=== PATIENT | male | born 1985 | race Caucasian/White ===

== ENCOUNTER 2018-04-14 19:50 | Emergency (ER) | payer BC ==
[2018-04-14] MEDS ORDERED: HYDROCODONE/APAP 5/325 MG TAB ONE (20:35)
[2018-04-14] MEDS ORDERED: TETANUS & DIPHTHERIA TOX,ADULT 0.5 ML VIAL ONE (20:35)
[2018-04-14] MEDS ORDERED: LIDOCAINE 1% 20 ML MDV ONE ×2 (21:08→21:41)
--- NOTE | 2018-04-14 22:35 | ER ---
Nurse's Notes [facility] Name: Arley Bennett IV Age: 33 yrs Sex: Male : 1985 Arrival Date: 04/14/2018 Time: 19:51 Bed 19 Private MD: Diagnosis: Laceration without foreign body of right hand Presentation: 04/14 20:01 Presenting complaint: Patient states: Patient reports " I fell on an oyster bed and ea sliced my hand trying to catch myself". Transition of care: patient was not received from another setting of care. Onset of symptoms was April 14, 2018. Risk Assessment: Do you want to hurt yourself or someone else? Patient reports no desire to harm self or others. Initial Sepsis Screen: Does the patient meet any 2 criteria?. Initial Sepsis Screen: Does the patient meet any 2 criteria? No. Patient's initial sepsis screen is negative. Does the patient have a suspected source of infection? No. Patient's initial sepsis screen is negative. Care prior to arrival: None. 20:01 Method Of Arrival: Ambulatory ea 20:01 Acuity: ERLIN 3 ea Triage Assessment: 20:04 General: Appears uncomfortable, Behavior is calm, cooperative. Pain: Complains of pain ea in right hand. Musculoskeletal: Circulation, motion, and sensation intact. Injury Description: Laceration sustained to palmar aspect of proximal phalanx of right little finger, palmar aspect of middle phalanx of right ring finger, palmar aspect of proximal phalanx of right ring finger, palmar aspect of middle phalanx of right middle finger, palmar aspect of proximal phalanx of right middle finger, palmar aspect of proxima; phalanx of right index finger and Right first web space is 2.6 to 7.5 cm long, bleeding moderately, was sustained 30-60 minutes ago. Historical: - Allergies: 20:03 No Known Allergies; ea - Home Meds: 20:03 None [Active]; ea - PMHx: 20:03 None; ea - PSHx: 20:03 None; ea - Immunization history:: Adult Immunizations up to date. - Social history:: Smoking status: Patient/guardian denies using tobacco. - Ebola Screening: : No symptoms or risks identified at this time. Screenin:52 Abuse screen: Denies threats or abuse. Nutritional screening: No deficits noted. jd3 Tuberculosis screening: No symptoms or risk factors identified. Fall Risk Fall in past 12 months (25 points). Gait- Normal/Bed Rest/Wheelchair (0 pts) Mental Status- Oriented to own ability (0 pts). Total Casas Fall Scale indicates Low Risk Score (25-44 pts). Fall prevention measures have been instituted. Side Rails Up X 2 Placed close to Nursing Station Frequent Obs/Assesments occuring Family Present and informed to notify staff if they need to leave bedside. Assessment: 20:05 General: Appears in no apparent distress. uncomfortable, Behavior is calm, cooperative, jd3 appropriate for age. Pain: Complains of pain in palmar aspect of distal phalanx of right little finger, palmar aspect of proximal phalanx of right ring finger, palmar aspect of proximal phalanx of right middle finger and palmar aspect of middle phalanx of right index finger Quality of pain is described as aching, throbbing. Neuro: Level of Consciousness is awake, alert, obeys commands, Oriented to person, place, time, situation. Cardiovascular: Heart tones S1 S2 present Capillary refill < 3 seconds Patient's skin is warm and dry. Respiratory: Airway is patent Respiratory effort is even, unlabored, Respiratory pattern is regular, symmetrical, Breath sounds are clear bilaterally. GI: Abdomen is flat, Patient currently denies abdominal pain, diarrhea, nausea, vomiting. : No signs and/or symptoms were reported regarding the genitourinary system. EENT: No signs and/or symptoms were reported regarding the EENT system. Derm: Skin is intact, Skin is dry, Skin is normal, Skin temperature is warm Wound noted palmar aspect of middle phalanx of right little finger, palmar aspect of proximal phalanx of right ring finger, palmar aspect of proximal phalanx of right middle finger and palmar aspect of middle phalanx of right index finger. Musculoskeletal: Circulation, motion, and sensation intact. Range of motion: intact in all extremities. Injury Description: Laceration sustained to palmar aspect of middle phalanx of right little finger, palmar aspect of proximal phalanx of right ring finger, palmar aspect of proximal phalanx of right middle finger and palmar aspect of middle phalanx of right index finger is 0.5 to 2.5 cm long, bleeding moderately, was sustained 30-60 minutes ago. moderate bleeding noted at this time. 20:54 Reassessment: Patient appears in no apparent distress at this time. Patient and/or jd3 family updated on plan of care and expected duration. Pain level reassessed. Patient is alert, oriented x 3, equal unlabored respirations, skin warm/dry/pink. waiting for results and provider for laceration care. 21:48 Reassessment: Patient appears in no apparent distress at this time. Patient and/or jd3 family updated on plan of care and expected duration. Pain level reassessed. Patient is alert, oriented x 3, equal unlabored respirations, skin warm/dry/pink. provider at bedside. 22:58 Reassessment: Patient appears in no apparent distress at this time. Patient and/or jd3 family updated on plan of care and expected duration. Pain level reassessed. Patient is alert, oriented x 3, equal unlabored respirations, skin warm/dry/pink. pt reported understanding of discharge instructions, even and steady gait upon discharge. Patient states feeling better. Vital Signs: 20:03 Pulse 84; Resp 18 S; Temp 99; Pulse Ox 97% ; Weight 99.79 kg; Height 5 ft. 11 in. ea (180.34 cm); Pain 8/10; 20:53 BP 103 / 65; Pulse 70; Resp 18 S; Pulse Ox 99% on R/A; jd3 21:47 BP 121 / 83; Pulse 76; Resp 18 S; Pulse Ox 95% on R/A; jd3 23:00 BP 129 / 53; Pulse 70; Resp 17 S; Pulse Ox 97% on R/A; jd3 20:03 Body Mass Index 30.68 (99.79 kg, 180.34 cm) ED Course: 19:51 Patient arrived in ED. am2 19:57 Luis Young, JUSTUS is PHCP. pm1 19:58 Man Mott MD is Attending Physician. pm1 20:02 Slava Bullock, MEKA is Primary Nurse. jd3 20:03 Triage completed. ea 20:38 Hand Right 3 View XRAY In Process Unspecified. EDMS 21:48 Patient has correct armband on for positive identification. Bed in low position. Call j light in reach. Side rails up X2. Adult w/ patient. 21:51 Assist provider with laceration repair on palmar aspect of middle phalanx of right jd3 little finger, palmar aspect of proximal phalanx of right ring finger, palmar aspect of proximal phalanx of right middle finger and palmar aspect of middle phalanx of right index finger that was between 2.6 to 7.5 cm using sutures. Set up tray. Performed by Luis Young NP Patient tolerated well. 22:57 Patient placed in an exam room. jd3 22:57 Patient did not have IV access during this emergency room visit. jd3 Administered Medications: 20:41 Drug: Tetanus-Diphtheria Toxoid Adult 0.5 ml {Wide Area Network Systems Administrator: [employer]. Exp: jd3 06/21/2020. Lot #: [id number]. } Route: IM; Site: right deltoid; 21:49 Follow up: Response: No adverse reaction jd3 20:41 Drug: [place] 5 mg-325 mg 1 tabs Route: PO; jd3 21:49 Follow up: Response: Pain is decreased jd3 21:49 Drug: Lidocaine (1 %) 20 ml {Note: administered by Luis Young NP.} Volume: 20 ml; jd3 Route: Infiltration; 22:51 Follow up: Response: No adverse reaction jd3 22:51 Drug: Doxycycline 100 mg Route: PO; jd3 22:58 Follow up: Response: Medication administered at discharge. jd3 Outcome: 22:34 Discharge ordered by . pm1 22:57 Discharged to home ambulatory, with family. jd3 22:57 Condition: stable 22:57 Discharge instructions given to patient, family, Instructed on discharge instructions, follow up and referral plans. medication usage, Demonstrated understanding of instructions, follow-up care, medications, Prescriptions given X 3. 22:59 Patient left the ED. jd3 Signatures: Dispatcher [employer] EDMS Luis Young NP COSMETICS DEMONSTRATOR pm1 Mikaela Rose am2 Kallie Garcia RN Slava Magaña ea, RN RN jd3
--- NOTE | 2018-04-14 22:35 | EDPHYS ---
Physician Documentation [facility] Name: Arley Bennett IV Age: 33 yrs Sex: Male : 1985 Arrival Date: 04/14/2018 Time: 19:51 Bed 19 Private MD: ED Physician Man Mott HPI: 04/14 23:00 This 33 yrs old Male presents to ER via Ambulatory with complaints of Hand pm1 Injury, Laceration To Hand. 23:00 The patient or guardian reports a laceration. The complaints affect the right hand pm1 diffusely. Context: The problem was sustained outdoors, resulted from a fall, slipped. Onset: The symptoms/episode began/occurred just prior to arrival. Modifying factors:. The patient has not experienced similar symptoms in the past. Patient slipped on boat dock and cut his right hand on some barnacles. Patient with full range of motion to all fingers on right hand. Historical: - Allergies: 20:03 No Known Allergies; ea - Home Meds: 20:03 None [Active]; ea - PMHx: 20:03 None; ea - PSHx: 20:03 None; ea - Immunization history:: Adult Immunizations up to date. - Social history:: Smoking status: Patient/guardian denies using tobacco. - Ebola Screening: : No symptoms or risks identified at this time. ROS: 23:00 Constitutional: Negative for fever, chills, and weight loss, Eyes: Negative for injury, pm1 pain, redness, and discharge, ENT: Negative for injury, pain, and discharge, Neck: Negative for injury, pain, and swelling, Cardiovascular: Negative for chest pain, palpitations, and edema, Respiratory: Negative for shortness of breath, cough, wheezing, and pleuritic chest pain, Abdomen/GI: Negative for abdominal pain, nausea, vomiting, diarrhea, and constipation, Back: Negative for injury and pain, Neuro: Negative for headache, weakness, numbness, tingling, and seizure. 23:00 MS/extremity: Positive for laceration, of the right hand, Negative for decreased range of motion. 23:00 Skin: Positive for laceration(s), of the right hand. Exam: 23:00 Constitutional: This is a well developed, well nourished patient who is awake, alert, pm1 and in no acute distress. Head/Face: Normocephalic, atraumatic. Eyes: Pupils equal round and reactive to light, extra-ocular motions intact. Lids and lashes normal. Conjunctiva and sclera are non-icteric and not injected. Cornea within normal limits. Periorbital areas with no swelling, redness, or edema. ENT: Nares patent. No nasal discharge, no septal abnormalities noted. Tympanic membranes are normal and external auditory canals are clear. Oropharynx with no redness, swelling, or masses, exudates, or evidence of obstruction, uvula midline. Mucous membranes moist. Neck: Trachea midline, no thyromegaly or masses palpated, and no cervical lymphadenopathy. Supple, full range of motion without nuchal rigidity, or vertebral point tenderness. No Meningismus. Chest/axilla: Normal chest wall appearance and motion. Nontender with no deformity. No lesions are appreciated. Cardiovascular: Regular rate and rhythm with a normal S1 and S2. No gallops, murmurs, or rubs. Normal PMI, no JVD. No pulse deficits. Respiratory: Lungs have equal breath sounds bilaterally, clear to auscultation and percussion. No rales, rhonchi or wheezes noted. No increased work of breathing, no retractions or nasal flaring. Back: No spinal tenderness. No costovertebral tenderness. Full range of motion. 23:00 Skin: injury, laceration(s), the wound is approximately 11 cm(s), of the right hand. pm1 Vital Signs: 20:03 Pulse 84; Resp 18 S; Temp 99; Pulse Ox 97% ; Weight 99.79 kg; Height 5 ft. 11 in. ea (180.34 cm); Pain 8/10; 20:53 BP 103 / 65; Pulse 70; Resp 18 S; Pulse Ox 99% on R/A; jd3 21:47 BP 121 / 83; Pulse 76; Resp 18 S; Pulse Ox 95% on R/A; jd3 23:00 BP 129 / 53; Pulse 70; Resp 17 S; Pulse Ox 97% on R/A; jd3 20:03 Body Mass Index 30.68 (99.79 kg, 180.34 cm) ea Laceration: 22:32 Wound Repair of 11cm ( 4.3in ) subcutaneous laceration to palmar aspect of distal pm1 phalanx of right little finger, palmar aspect of proximal phalanx of right little finger, palmar aspect of proximal phalanx of right ring finger, palmar aspect of proximal phalanx of right middle finger and palmar aspect of proxima; phalanx of right index finger. Irregularly shaped.. Distal neuro/vascular/tendon intact. Anesthesia: Local anesthetic administered with 10 mls of 1% lidocaine. Wound prep: Extensive cleansing by me, Wound irrigation by me, Wound explored extensively, Copious irrigation. Skin closed with 33 5-0 Prolene using simple sutures and sterile technique. Dressed with 4x4's. Patient tolerated well. MDM: 20:04 Patient medically screened. pm1 22:32 Data reviewed: vital signs. Data interpreted: Pulse oximetry: on room air is 95 %. pm1 Interpretation: normal. Counseling: I had a detailed discussion with the patient and/or guardian regarding: the historical points, exam findings, and any diagnostic results supporting the discharge/admit diagnosis, radiology results, the need for outpatient follow up, suture removal and wound recheck, to return to the emergency department if symptoms worsen or persist or if there are any questions or concerns that arise at home. 04/14 20:04 Order name: Hand Right 3 View XRAY pm1 04/14 20:18 Order name: Prolene, Sutures; Complete Time: 20:47 pm1 04/14 20:18 Order name: Dressing - Wound; Complete Time: 22:51 pm1 04/14 20:18 Order name: Gloves, Sterile; Complete Time: 20:47 pm1 04/14 20:18 Order name: Setup Suture Tray; Complete Time: 20:28 pm1 04/14 22:35 Order name: Volar Wrist Splint; Complete Time: 22:50 pm1 Administered Medications: 20:41 Drug: Tetanus-Diphtheria Toxoid Adult 0.5 ml {Scrubber Machine Tender: [employer]. Exp: jd3 06/21/2020. Lot #: [id number]. } Route: IM; Site: right deltoid; 21:49 Follow up: Response: No adverse reaction jd3 20:41 Drug: [place] 5 mg-325 mg 1 tabs Route: PO; jd3 21:49 Follow up: Response: Pain is decreased jd3 21:49 Drug: Lidocaine (1 %) 20 ml {Note: administered by Luis Young NP.} Volume: 20 ml; jd3 Route: Infiltration; 22:51 Follow up: Response: No adverse reaction jd3 22:51 Drug: Doxycycline 100 mg Route: PO; jd3 22:58 Follow up: Response: Medication administered at discharge. jd3 Disposition: 04/14/18 22:34 Discharged to Home. Impression: Laceration without foreign body of right hand. - Condition is Stable. - Discharge Instructions: Laceration Care, Adult. - Prescriptions for Doxycycline Hyclate 100 mg Oral Tablet - take 1 tablet by ORAL route every 12 hours; 20 tablet. Tylenol- Codeine #3 300-30 mg Oral Tablet - take 2 tablets by ORAL route every 6 hours As needed; 20 tablet. - Medication Reconciliation Form, Thank You Letter, Antibiotic Education, Prescription Opioid Use form. - Follow up: Emergency Department; When: As needed; Reason: Worsening of condition. Follow up: Private Physician; When: 10 - 14 days; Reason: Wound Recheck, Recheck today's complaints, Continuance of care, Staple/Suture removal, Re-evaluation by your physician. - Problem is new. - Symptoms have improved. Addendum: 04/17/2018 09:22 Co-signature as Attending Physician, Man Mott MD I agree with the assessment and c [place] plan of care. Signatures: Dispatcher [employer] EDMan Lewis MD MD cha Marinas, Patrick, NP PAIRER pm1 Kallie Garcia, Slava Magaña RN, ea, RN RN jd3 Corrections: (The following items were deleted from the chart) 04/14 22:59 22:34 04/14/2018 22:34 Discharged to Home. Impression: Laceration without foreign body jd3 of right hand. Condition is Stable. Forms are Medication Reconciliation Form, Thank You Letter, Antibiotic Education, Prescription Opioid Use. Follow up: Emergency Department; When: As needed; Reason: Worsening of condition. Follow up: Private Physician; When: 10 - 14 days; Reason: Wound Recheck, Recheck today's complaints, Continuance of care, Staple/Suture removal, Re-evaluation by your physician. Problem is new. Symptoms have improved. pm1
[2018-04-14] MEDS ORDERED: DOXYCYCLINE 100 MG CAP PO ONE (22:38)
--- NOTE | 2018-04-15 08:38 | RAD REPORT ---
EXAM DESCRIPTION: RAD - Hand Right 3 View - 04/14/2018 8:38 pm CLINICAL HISTORY: Fall, hand lacerations, possible foreign bodies COMPARISON: None. FINDINGS: No fracture is identified. There is no dislocation or periosteal reaction noted. No forei gn body or other soft tissue abnormality. IMPRESSION: Negative right hand examination.
== END 2018-04-14 22:59 | disposition home or self-care (01) ==
LOC: ER 19:50
PROC: 0JQJ0ZZ Repair Right Hand Subcutaneous Tissue and Fascia, Open Approach (ICD-10-PCS; principal; 2018-04-14)
DX: S61.411A Laceration without foreign body of right hand, initial encounter (principal); W01.0XXA Fall on same level from slipping, tripping and stumbling without subsequent striking against object, initial encounter; Y93.89 Activity, other specified; Y92.89 Other specified places as the place of occurrence of the external cause; Z23 Encounter for immunization
CPT/HCPCS: 90714; 99284